=== PATIENT | male | born 1970 | race American Indian/Alaskan Native ===

== ENCOUNTER 2016-09-08 17:16 | Emergency (ER) | payer SELFPAY ==
[2016-09-08 17:47] LABS: Basophils % (Auto) 0.6 % (0.0-1.8); Eosinophils % (Auto) 0.1 % (0.0-4.3); Hematocrit 40.2 % (35.5-45.6); Mean Corpuscular HGB Conc 32 % (32-34); Mean Corpuscular Hemoglobin 27 pg (28-32); Mean Corpuscular Volume 84 fl (84-94); Platelet Count 219 K/mm3 (140-440); Red Blood Count 4.76 M/mm3 (3.65-5.03)
--- NOTE | 2016-09-08 17:55 | Emergency Department Report ---
ED Altered Mental Status HPI - General Chief Complaint: Altered Mental Status Stated Complaint: SEVERE AMS Time Seen by Provider: 09/08/16 17:37 Source: patient Mode of arrival: Ambulatory Limitations: Altered Mental Status - History of Present Illness Initial Comments: Patient presents to the emergency department for evaluation of altered mental status. Patient states he does not know how he got to the emergency department. He does not know his name. He states that he is in pain, but cannot state what hurts. He denies taking any medication or other drugs. There are no other complaints. MD Complaint: confusion -: unknown Severity: severe Consistency of Symptoms: constant Context: unknown Associated Symptoms: denies other symptoms - Related Data Home Medications Medication Instructions Recorded Confirmed Last Taken Unobtainable 09/08/16 09/08/16 Unknown Allergies Allergy/AdvReac Type Severity Reaction Status Date / Time Unable to Assess Allergy Unverified 09/08/16 17:23 ED Review of Systems ROS: Stated complaint: SEVERE AMS Other details as noted in HPI Comment: Unobtainable due to pts medical conditions ED Past Medical Hx - Past Medical History Additional medical history: Unknown - Surgical History Past Surgical History?: Yes Hx Appendectomy: Yes - Social History Smoking Status: Unknown if ever smoked Substance Use Type: Other (unknown) - Medications Home Medications: Home Medications Medication Instructions Recorded Confirmed Last Taken Type Unobtainable 09/08/16 09/08/16 Unknown History ED Physical Exam - General Limitations: Altered Mental Status General appearance: alert, in no apparent distress - Head Head exam: Present: atraumatic, normocephalic - Eye Eye exam: Present: normal appearance, PERRL, EOMI - ENT ENT exam: Present: normal exam, normal orophraynx, mucous membranes moist - Neck Neck exam: Present: normal inspection, full ROM. Absent: tenderness - Respiratory Respiratory exam: Present: normal lung sounds bilaterally. Absent: respiratory distress - Cardiovascular Cardiovascular Exam: Present: normal rhythm, tachycardia, normal heart sounds - GI/Abdominal GI/Abdominal exam: Present: soft, normal bowel sounds. Absent: distended, tenderness - Extremities Exam Extremities exam: Present: normal inspection, full ROM. Absent: tenderness - Back Exam Back exam: Present: normal inspection, full ROM. Absent: tenderness - Neurological Exam Neurological exam: Present: alert. Absent: oriented X3 (not oriented to person , place, or time), motor sensory deficit - Skin Skin exam: Present: warm, dry, intact ED Course Vital Signs 09/08/16 09/08/16 09/08/16 17:28 17:34 18:59 Temperature 97.7 F 98.3 F 98.3 F Pulse Rate 113 H 93 H 95 H Respiratory 16 16 16 Rate Blood Pressure 148/95 Blood Pressure 134/78 127/80 [Left] O2 Sat by Pulse 99 100 99 Oximetry - Lab Data Result diagrams: 09/08/16 17:27 09/08/16 17:27 Lab Results 09/08/16 09/08/16 09/08/16 Range/Units 17:20 17:27 17:27 WBC 13.0 H (4.5-11.0) K/mm3 RBC 4.76 (3.65-5.03) M/mm3 Hgb 13.0 (11.8-15.2) gm/dl Hct 40.2 (35.5-45.6) % MCV 84 (84-94) fl MCH 27 L (28-32) pg MCHC 32 (32-34) % RDW 15.0 (13.2-15.2) % Plt Count 219 (140-440) K/mm3 Lymph % (Auto) 7.7 L (13.4-35.0) % [place] % (Auto) 5.6 (0.0-7.3) % Eos % (Auto) 0.1 (0.0-4.3) % Baso % (Auto) 0.6 (0.0-1.8) % Lymph # 1.0 L (1.2-5.4) K/mm3 [place] # 0.7 (0.0-0.8) K/mm3 Eos # 0.0 (0.0-0.4) K/mm3 Baso # 0.1 (0.0-0.1) K/mm3 Seg Neutrophils % 86.0 H (40.0-70.0) % Seg Neutrophils # 11.2 H (1.8-7.7) K/mm3 Sodium 142 (137-145) mmol/L Potassium 4.7 (3.6-5.0) mmol/L Chloride 101.2 (98-107) mmol/L Carbon Dioxide 25 (22-30) mmol/L Anion Gap 21 mmol/L BUN 14 (9-20) mg/dL Creatinine 0.9 (0.8-1.5) mg/dL Estimated GFR > 60 ml/min BUN/Creatinine Ratio 15.55 % Glucose 101 H (75-100) mg/dL POC Glucose 99 (70-105) Lactic Acid (0.7-2.0) mmol/L Calcium 9.7 (8.4-10.2) mg/dL Magnesium 2.20 (1.7-2.3) mg/dL Total Bilirubin 0.40 (0.1-1.2) mg/dL AST 22 (5-40) units/L ALT 22 (7-56) units/L Alkaline Phosphatase 114 (35-129) units/L Ammonia (25-60) umol/L Total Creatine Kinase (55-170) units/L Total Protein 7.7 (6.3-8.2) g/dL Albumin 4.6 (3.9-5) g/dL Albumin/Globulin Ratio 1.5 % TSH (0.270-4.200) mlU/mL Salicylates (2.8-20.0) mg/dL Acetaminophen (10.0-30.0) ug/mL Plasma/Serum Alcohol (0-0.07) gm% 09/08/16 09/08/16 09/08/16 Range/Units 17:27 17:27 17:27 WBC (4.5-11.0) K/mm3 RBC (3.65-5.03) M/mm3 Hgb (11.8-15.2) gm/dl Hct (35.5-45.6) % MCV (84-94) fl MCH (28-32) pg MCHC (32-34) % RDW (13.2-15.2) % Plt Count (140-440) K/mm3 Lymph % (Auto) (13.4-35.0) % [place] % (Auto) (0.0-7.3) % Eos % (Auto) (0.0-4.3) % Baso % (Auto) (0.0-1.8) % Lymph # (1.2-5.4) K/mm3 [place] # (0.0-0.8) K/mm3 Eos # (0.0-0.4) K/mm3 Baso # (0.0-0.1) K/mm3 Seg Neutrophils % (40.0-70.0) % Seg Neutrophils # (1.8-7.7) K/mm3 Sodium (137-145) mmol/L Potassium (3.6-5.0) mmol/L Chloride (98-107) mmol/L Carbon Dioxide (22-30) mmol/L Anion Gap mmol/L BUN (9-20) mg/dL Creatinine (0.8-1.5) mg/dL Estimated GFR ml/min BUN/Creatinine Ratio % Glucose (75-100) mg/dL POC Glucose (70-105) Lactic Acid 1.40 (0.7-2.0) mmol/L Calcium (8.4-10.2) mg/dL Magnesium (1.7-2.3) mg/dL Total Bilirubin (0.1-1.2) mg/dL AST (5-40) units/L ALT (7-56) units/L Alkaline Phosphatase (35-129) units/L Ammonia (25-60) umol/L Total Creatine Kinase (55-170) units/L Total Protein (6.3-8.2) g/dL Albumin (3.9-5) g/dL Albumin/Globulin Ratio % TSH 0.532 (0.270-4.200) mlU/mL Salicylates < 0.3 L (2.8-20.0) mg/dL Acetaminophen (10.0-30.0) ug/mL Plasma/Serum Alcohol (0-0.07) gm% 09/08/16 09/08/16 09/08/16 Range/Units 17:27 17:27 17:45 WBC (4.5-11.0) K/mm3 RBC (3.65-5.03) M/mm3 Hgb (11.8-15.2) gm/dl Hct (35.5-45.6) % MCV (84-94) fl MCH (28-32) pg MCHC (32-34) % RDW (13.2-15.2) % Plt Count (140-440) K/mm3 Lymph % (Auto) (13.4-35.0) % [place] % (Auto) (0.0-7.3) % Eos % (Auto) (0.0-4.3) % Baso % (Auto) (0.0-1.8) % Lymph # (1.2-5.4) K/mm3 [place] # (0.0-0.8) K/mm3 Eos # (0.0-0.4) K/mm3 Baso # (0.0-0.1) K/mm3 Seg Neutrophils % (40.0-70.0) % Seg Neutrophils # (1.8-7.7) K/mm3 Sodium (137-145) mmol/L Potassium (3.6-5.0) mmol/L Chloride (98-107) mmol/L Carbon Dioxide (22-30) mmol/L Anion Gap mmol/L BUN (9-20) mg/dL Creatinine (0.8-1.5) mg/dL Estimated GFR ml/min BUN/Creatinine Ratio % Glucose (75-100) mg/dL POC Glucose (70-105) Lactic Acid (0.7-2.0) mmol/L Calcium (8.4-10.2) mg/dL Magnesium (1.7-2.3) mg/dL Total Bilirubin (0.1-1.2) mg/dL AST (5-40) units/L ALT (7-56) units/L Alkaline Phosphatase (35-129) units/L Ammonia (25-60) umol/L Total Creatine Kinase 385 H (55-170) units/L Total Protein (6.3-8.2) g/dL Albumin (3.9-5) g/dL Albumin/Globulin Ratio % TSH (0.270-4.200) mlU/mL Salicylates (2.8-20.0) mg/dL Acetaminophen < 15.0 (10.0-30.0) ug/mL Plasma/Serum Alcohol < 0.01 (0-0.07) gm% /16/17 Range/Units 18:13 WBC (4.5-11.0) K/mm3 RBC (3.65-5.03) M/mm3 Hgb (11.8-15.2) gm/dl Hct (35.5-45.6) % MCV (84-94) fl MCH (28-32) pg MCHC (32-34) % RDW (13.2-15.2) % Plt Count (140-440) K/mm3 Lymph % (Auto) (13.4-35.0) % [place] % (Auto) (0.0-7.3) % Eos % (Auto) (0.0-4.3) % Baso % (Auto) (0.0-1.8) % Lymph # (1.2-5.4) K/mm3 [place] # (0.0-0.8) K/mm3 Eos # (0.0-0.4) K/mm3 Baso # (0.0-0.1) K/mm3 Seg Neutrophils % (40.0-70.0) % Seg Neutrophils # (1.8-7.7) K/mm3 Sodium (137-145) mmol/L Potassium (3.6-5.0) mmol/L Chloride (98-107) mmol/L Carbon Dioxide (22-30) mmol/L Anion Gap mmol/L BUN (9-20) mg/dL Creatinine (0.8-1.5) mg/dL Estimated GFR ml/min BUN/Creatinine Ratio % Glucose (75-100) mg/dL POC Glucose (70-105) Lactic Acid (0.7-2.0) mmol/L Calcium (8.4-10.2) mg/dL Magnesium (1.7-2.3) mg/dL Total Bilirubin (0.1-1.2) mg/dL AST (5-40) units/L ALT (7-56) units/L Alkaline Phosphatase (35-129) units/L Ammonia 45.0 (25-60) umol/L Total Creatine Kinase (55-170) units/L Total Protein (6.3-8.2) g/dL Albumin (3.9-5) g/dL Albumin/Globulin Ratio % TSH (0.270-4.200) mlU/mL Salicylates (2.8-20.0) mg/dL Acetaminophen (10.0-30.0) ug/mL Plasma/Serum Alcohol (0-0.07) gm% - EKG Data -: EKG Interpreted by Il EKG shows normal: sinus rhythm, axis, intervals, QRS complexes, ST-T waves Rate: tachycardia When compared to previous EKG there are: previous EKG unavailable Interpretation: normal EKG - Medical Decision Making Additional history has been obtained from nursing staff who saw the patient come to the emergency department earlier today. Per report, the patient has a history of paranoid schizophrenia but left the hospital because he was concerned about security watching him. Lab and imaging results have been reviewed and are unremarkable. Urinalysis and urine drug screen are still pending. It is becoming more likely that the patient's presentation is psychiatric in nature. Form 1013 will be signed and placed on the patient's chart. Patient is awaiting mental health evaluation for inpatient placement. - Differential Diagnosis encephalopathy, drug intoxication, hyperthyroidism Critical care attestation.: If time is entered above; I have spent that time in minutes in the direct care of this critically ill patient, excluding procedure time. ED Disposition Clinical Impression: Paranoid schizophrenia Disposition: [id number]/TX-65 PSY HOSP/PSY UNIT Is pt being admited?: No Condition: Stable Time of Disposition: 19:44
[2016-09-08 18:03] LABS: Alanine Aminotransferase 22 units/L (7-56); Albumin 4.6 g/dL (3.9-5); Albumin/Globulin Ratio 1.5 %; Alkaline Phosphatase 114 units/L (35-129); Anion Gap 21 mmol/L; BUN/Creatinine Ratio 15.55; Blood Urea Nitrogen 14 mg/dL (9-20); Calcium 9.7 mg/dL (8.4-10.2); Carbon Dioxide 25 mmol/L (22-30); Chloride 101.2 mmol/L (98-107); Glucose 101 mg/dL (75-100); Potassium 4.7 mmol/L (3.6-5.0); Sodium 142 mmol/L (137-145); Total Protein 7.7 g/dL (6.3-8.2)
--- NOTE | 2016-09-08 18:29 | Cat Scan Report ---
FINAL REPORT PROCEDURE: CT head without contrast. TECHNIQUE: Computerized tomography of the head was performed without contrast material. HISTORY: New onset confusion. COMPARISON: No prior studies are available for comparison. FINDINGS: The ventricles are normal in size. The hein matter and white matter appear normal. There are no mass lesions. There is no intracranial hemorrhage. There are no signs of acute infarction. The calvarium appears intact. The mastoid air cells are clear. There is mild mucosal thickening in the left maxillary sinus. IMPRESSION: Normal study of the brain.
[2016-09-08 20:02] LABS: Bilirubin,Urine NEG (Negative); Blood,Urine NEG (Negative); Ketones,Urine TR mg/dL (Negative); Leukocyte Esterase,Urine NEG (Negative); Mucus,Urine 1+ /HPF; Nitrite,Urine NEG (Negative); Urobilinogen,Urine < 2.0 mg/dL (<2.0)
[2016-09-08 23:55] LABS: Urine Drugs of Abuse Note Disclamer
[2016-09-09] MEDS ORDERED: GEODON IM ONE (07:51)
--- NOTE | 2016-09-09 08:07 | Emergency Department Report ---
Blank Doc - Documentation Documentation: I have had an opportunity to review this case with the nurse and see the patient. The patient is completely nonverbal. He appears to be responding to internal stimuli. During the night he was placed in 4-point restraints but not given any antipsychotic medication. His workup is remarkable for no emergency medical condition identifiable on laboratory workup or CT examination. On examination now the patient appears to be neurologically intact his cardiovascular exam is normal his lungs are clear his abdomen is benign. Diagnostic impression Acute psychosis Plan Patient will be given 10 of Geodon now. I do think this will be of benefit. He requires psychiatric stabilization. I do not see any medical contraindications to psychiatric hospitalization. Mental health counselor will be informed.
[2016-09-09] MEDS ORDERED: ATIVAN IV ONE (08:33)
--- NOTE | 2016-09-10 11:25 | Consultation ---
History of Present Illness - Reason for Consult Consult date: 09/10/16 Reason for consult: AMS Medications and Allergies Allergies Allergy/AdvReac Type Severity Reaction Status Date / Time Unable to Assess Allergy Unverified 09/08/16 17:23 Home Medications Medication Instructions Recorded Confirmed Last Taken Type Unobtainable 09/08/16 09/08/16 Unknown History Mental Status Exam - Vital signs Last Vital Signs Temp 97.7 F 09/10/16 09:25 Pulse 85 09/10/16 09:25 Resp 16 09/10/16 09:26 BP 131/92 09/10/16 09:25 Pulse Ox 98 09/10/16 09:26 Results Result Diagrams: 09/08/16 17:27 09/08/16 17:27 All other labs normal. 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 For the first 2 days patient was mostly nonverbal and apparently confused per review of the medical records. Patient was given IM of Geodon when he was registered under the [facility] emergency medical due to no one knowing his name. Upon clinical examination yesterday, patient was more verbal than what was reported through the medical record previously. Per discussion with the nurse yesterday , the patient had become somewhat agitated and was placed in restraints. Furthermore, patient was malodorous and appeared to be inattentive to his ADLs. These events were consistent with his presentation yesterday in the day for. On examination today, patient is more verbal he's organized alert and oriented. Patient notes that his name is Eleuterio Butcher and that he is 46 years old. Furthermore, patient notes that she was intoxicated on alcohol and got picked up by the police because he was having disorganized behaviors and/or that he was confused. Patient states that he has a place residence and consistently follows up with his psychiatrist Dr. Caro who is at [address] [facility] in [facility] [place]. PSYCHIATRIC REVIEW OF SYSTEMS: Substance: Recent alcohol use Depression: denies Crystal: denies labile moods, no flight of ideas, not impulsive Psychosis: no AVH. No paranoia/grandiosity/erotomania Anxiety/ OCD/ PTSD: denies somatic symptoms, flashbacks, nightmares, avoidance, panic attacks Suicidality: denies SI Other Self-Injurious Behavior: none currently, no SIB noted recently Violent/ Aggressive Behavior: none noted CURRENT MEDICATIONS: ( Psychiatric and Non-psychiatric ) Clozaril 200 mg at bedtime ALLERGIES: Unknown PAST PSYCHIATRIC HISTORY: ( Prior Treatment, Precipitating Factors, Diagnosis, and Course of Treatment ) Inpatient: Patient did not report; however, it's likely that he set previous inpatient consultations Outpatient: Follows up with Dr. Caro at [address] [place] [address] Prior Suicide Attempts: denies Prior Self-Injurious Behaviors: denies PAST PSYCHIATRIC MEDICATION TRIALS: Patient did not report MEDICAL HISTORY: (Chronic and Acute Illnesses, Current Medical Treatment, Recent Hospitalizations) Patient did not report HISTORY OF TRAUMA/ABUSE: Patient denies on clinical examination DRUG / ALCOHOL ABUSE HISTORY: As above Detoxification / Withdrawal: none noted SOCIAL HISTORY: (Educational Level, Employment, Support System, Interpersonal Relationships) On disability, lives with a roommate. FAMILY HISTORY: Psychiatric/Substance Abuse MENTAL STATUS EXAM: General Appearance: casually dressed, no acute distress Sensorium/Consciousness: alert and responding to external stimuli Eye Contact: Fair Attitude / Behavior: cooperative Psychomotor & Musculoskeletal Activity: Bilateral tremors consistent with tardive dyskinesia. No perioral movements noted. No truncal movements noted. Gait is stable. Mood: fine Affect: constricted Speech / Language: normal Thought Processes: More organized compared to yesterday Thought Content: no SI, no HI Perception: no AVH Orientation: person, place, time and situation Judgment What would you do if you smelled smoke in a crowded movie theater?: improving Insight: improving Intelligence Vocabulary, general fund of knowledge, educational level : Below Average Capacity of ADLs: Independent STRENGTHS: PSYCHOSOCIAL AND ENVIRONMENTAL STRESSORS: ADMITTING DIAGNOSES Psychiatric: Schizophrenia Evidence for the following: Medical: n/a INITIAL PLAN OF CARE AND TREATMENT GOALS: Rescind 1013 Start Clozaril 200 mg po qhs (ANC reviewed and its WNL) Follow up with Dr. Caro at [address] [place] [address] in 7 days
--- NOTE | 2016-09-10 12:34 | Emergency Department Report ---
Blank Doc - Documentation Documentation: Patient has been reevaluated by psychiatry. Recommendations are to rescind the 1013 and discharge the patient home. Patient will be provided a prescription for Clozaril 200 mg by mouth at bedtime for 7 days per psychiatry request. Patient is to follow up with his outpatient psychiatrist in 7 days.
[2016-09-10 12:51] VITALS: BP 130/82
== END 2016-09-10 12:50 | disposition home or self-care (01) ==
LOC: EDBD 17:16 → EEVIPCON 17:16 → ED 17:16
DX: F20.0 Paranoid schizophrenia (principal)
CPT/HCPCS: 36415; 70450; 80053; 80307; 81001; 82140; 82550; 82962; 83735; 84443; 85025; 96372; 96374; 99285; G0480; J2060; J3486; 80320

== ENCOUNTER 2016-09-11 09:32 | Emergency (ER) | payer SELFPAY ==
[2016-09-11 09:54] VITALS: BP 144/89
--- NOTE | 2016-09-11 09:57 | Emergency Department Report ---
Chief Complaint: Medical Clearance Stated Complaint: DISORIENTATED Time Seen by Provider: 09/11/16 09:52 - HPI History of Present Illness: PT sent back from ED after being at hospital for shaking. PT is alert to person but states he lost his memory. PT denies pain. - ROS Review of Systems: - headache + tremor + decrease in memory - Exam Physical Exam: pt is alert, obese tremors noted to olvin upper ext pt appears to have an old contusion to L eye MSE screening note: Focused history and physical exam performed. Due to findings the following was ordered: labs ED Disposition for MSE Condition: Stable
[2016-09-11 10:19] LABS: Basophils % (Auto) 0.6 % (0.0-1.8); Eosinophils % (Auto) 0.4 % (0.0-4.3); Hematocrit 39.5 % (35.5-45.6); Hemoglobin 12.9 gm/dl (11.8-15.2); Mean Corpuscular HGB Conc 33 % (32-34); Mean Corpuscular Hemoglobin 27 pg (28-32); Mean Corpuscular Volume 83 fl (84-94); Platelet Count 206 K/mm3 (140-440); Red Blood Count 4.75 M/mm3 (3.65-5.03); Red Cell Distribution Width 15.2 % (13.2-15.2); White Blood Count 11.8 K/mm3 (4.5-11.0)
[2016-09-11 10:43] LABS: Alanine Aminotransferase 25 units/L (7-56); Albumin 4.6 g/dL (3.9-5); Albumin/Globulin Ratio 1.5 %; Alkaline Phosphatase 106 units/L (35-129); Anion Gap 20 mmol/L; Blood Urea Nitrogen 27 mg/dL (9-20); Calcium 9.5 mg/dL (8.4-10.2); Carbon Dioxide 26 mmol/L (22-30); Chloride 98.7 mmol/L (98-107); Glucose 88 mg/dL (75-100); Potassium 3.8 mmol/L (3.6-5.0); Sodium 141 mmol/L (137-145); Total Protein 7.7 g/dL (6.3-8.2)
--- NOTE | 2016-09-16 10:51 | ED Elopement Review ---
ED Pt Elopement review - Results review Lab results: Laboratory Tests 09/11/16 09/11/16 09/11/16 10:02 10:02 10:02 WBC 11.8 H RBC 4.75 Hgb 12.9 Hct 39.5 MCV 83 L MCH 27 L MCHC 33 RDW 15.2 Plt Count 206 Lymph % (Auto) 8.5 L [place] % (Auto) 6.8 Eos % (Auto) 0.4 Baso % (Auto) 0.6 Lymph # 1.0 L [place] # 0.8 Eos # 0.0 Baso # 0.1 Seg Neutrophils % 83.7 H Seg Neutrophils # 9.9 H Sodium 141 Potassium 3.8 Chloride 98.7 Carbon Dioxide 26 Anion Gap 20 BUN 27 H Creatinine 0.9 Estimated GFR > 60 BUN/Creatinine Ratio 30.00 Glucose 88 Calcium 9.5 Total Bilirubin 0.50 AST 28 ALT 25 Alkaline Phosphatase 106 Total Protein 7.7 Albumin 4.6 Albumin/Globulin Ratio 1.5 Salicylates < 0.3 L Acetaminophen Plasma/Serum Alcohol 09/11/16 09/11/16 10:02 10:02 WBC RBC Hgb Hct MCV MCH MCHC RDW Plt Count Lymph % (Auto) [place] % (Auto) Eos % (Auto) Baso % (Auto) Lymph # [place] # Eos # Baso # Seg Neutrophils % Seg Neutrophils # Sodium Potassium Chloride Carbon Dioxide Anion Gap BUN Creatinine Estimated GFR BUN/Creatinine Ratio Glucose Calcium Total Bilirubin AST ALT Alkaline Phosphatase Total Protein Albumin Albumin/Globulin Ratio Salicylates Acetaminophen < 15.0 Plasma/Serum Alcohol < 0.01 - Call Back decision Pt Call Back Decision: No action required
== END 2016-09-11 10:15 | disposition left against medical advice (07) ==
LOC: ED 09:32
DX: R41.0 Disorientation, unspecified (principal); Z53.21 Procedure and treatment not carried out due to patient leaving prior to being seen by health care provider
CPT/HCPCS: 36415; 80053; 85025; G0480; 80320

== ENCOUNTER 2016-09-12 02:59 | Emergency (ER) | payer MEDICAID ==
[2016-09-12 03:29] LABS: Basophils % (Auto) 0.4 % (0.0-1.8); Eosinophils % (Auto) 0.4 % (0.0-4.3); Hematocrit 38.1 % (35.5-45.6); Hemoglobin 12.4 gm/dl (11.8-15.2); Mean Corpuscular HGB Conc 32 % (32-34); Mean Corpuscular Hemoglobin 27 pg (28-32); Mean Corpuscular Volume 84 fl (84-94); Platelet Count 220 K/mm3 (140-440); Red Blood Count 4.56 M/mm3 (3.65-5.03); Red Cell Distribution Width 15.4 % (13.2-15.2); White Blood Count 13.9 K/mm3 (4.5-11.0)
[2016-09-12 03:35] LABS: Anion Gap 20 mmol/L; Blood Urea Nitrogen 27 mg/dL (9-20); Calcium 9.1 mg/dL (8.4-10.2); Carbon Dioxide 26 mmol/L (22-30); Chloride 94.8 mmol/L (98-107); Glucose 87 mg/dL (75-100); Potassium 3.5 mmol/L (3.6-5.0); Sodium 137 mmol/L (137-145)
--- NOTE | 2016-09-12 11:45 | Emergency Department Report ---
ED General Adult HPI - General Chief complaint: Psych Stated complaint: MH EVAL Time Seen by Provider: 09/12/16 11:04 Source: patient, RN notes reviewed, old records reviewed Mode of arrival: Ambulatory Limitations: No Limitations - History of Present Illness Initial comments: This is a 46-year-old male. He is previously unknown to me. The patient has a past history of schizophrenia and is undomiciled. Patient is brought to the hospital by EMS. As per verbal report from the nurse, the patient was smoking cigarettes outside of a local store, and 911 was contacted. The patient was recently admitted to the emergency room for psychiatric evaluation. The patient is not homicidal or suicidal. He has no pain at this time. He does have intermittent tremors of the bilateral upper extremities which appear to be chronic. The patient does not have any interest in speaking to a continuous pillowcase cutter about some help with his homelessness. He denies audio and visual hallucinations, and denies abdominal pain, and he requests to leave. He denies irritative and obstructive urinary symptoms. Patient recently admitted to the ER, had extensive workup, including laboratory studies, and a negative noncontrast CT scan of the brain. Severity scale (0 -10): 0 Improves with: none Worsens with: none Associated Symptoms: denies other symptoms - Related Data Previous Rx's Medication Instructions Recorded Last Taken Type cloZAPine 200 mg PO QHS #7 tablet 09/10/16 Unknown Rx Allergies Allergy/AdvReac Type Severity Reaction Status Date / Time No Known Allergies Allergy Verified 09/11/16 09:57 ED Review of Systems ROS: Stated complaint: MH EVAL Other details as noted in HPI Constitutional: see HPI Eyes: as per HPI ENT: as per HPI Respiratory: see HPI Cardiovascular: as per HPI. denies: chest pain Gastrointestinal: denies: abdominal pain Genitourinary: as per HPI Musculoskeletal: as per HPI Skin: as per HPI Neurological: as per HPI Psychiatric: denies: homicidal thoughts, suicidal thoughts ED Past Medical Hx - Past Medical History Previous Medical History?: Yes Hx Psychiatric Treatment: Yes (Schizophrenia) Additional medical history: Unknown - Surgical History Past Surgical History?: Yes Hx Appendectomy: Yes Additional Surgical History: pt will not respond to questions - Social History Smoking Status: Current Every Day Smoker Substance Use Type: Alcohol - Medications Home Medications: Home Medications Medication Instructions Recorded Confirmed Last Taken Type cloZAPine 200 mg PO QHS #7 tablet 09/10/16 Unknown Rx ED Physical Exam - General Limitations: No Limitations General appearance: alert, in no apparent distress - Head Head exam: Present: atraumatic, normocephalic - Eye Eye exam: Present: normal appearance, EOMI. Absent: nystagmus - ENT ENT exam: Present: normal exam, normal orophraynx, mucous membranes moist, normal external ear exam - Neck Neck exam: Present: normal inspection, full ROM. Absent: tenderness, meningismus - Respiratory Respiratory exam: Present: normal lung sounds bilaterally. Absent: respiratory distress, wheezes, rales, rhonchi, stridor, chest wall tenderness, accessory muscle use, decreased breath sounds, prolonged expiratory - Cardiovascular Cardiovascular Exam: Present: regular rate, normal rhythm, normal heart sounds. Absent: bradycardia, tachycardia, irregular rhythm, systolic murmur, diastolic murmur, rubs, gallop - GI/Abdominal GI/Abdominal exam: Present: soft, normal bowel sounds. Absent: distended, tenderness, guarding, rebound, rigid, pulsatile mass - Rectal Rectal exam: Present: deferred - Extremities Exam Extremities exam: Present: normal inspection, full ROM, normal capillary refill. Absent: tenderness, pedal edema, joint swelling, calf tenderness - Back Exam Back exam: Present: normal inspection, full ROM. Absent: tenderness, CVA tenderness (R), CVA tenderness (L), muscle spasm, paraspinal tenderness, vertebral tenderness - Neurological Exam Neurological exam: Present: alert, oriented X3, normal gait, other (Extraocular movements intact. Tongue midline. No facial droop. Facial sensation intact to light touch in the V1, V2, V3 distribution bilaterally. 5 and 5 strength in 4 extremities.. Sensation is intact to light touch in 4 extremities.). Absent : motor sensory deficit - Psychiatric Psychiatric exam: Absent: homicidal ideation, suicidal ideation - Skin Skin exam: Present: warm, dry, intact, normal color. Absent: rash ED Course Vital Signs 09/12/16 09/12/16 09/12/16 03:06 09:13 12:29 Temperature 98.1 F 97.9 F 97.9 F Pulse Rate 111 H 92 H 87 Respiratory 20 18 18 Rate Blood Pressure 114/83 120/87 120/86 [Right] O2 Sat by Pulse 97 99 99 Oximetry - Reevaluation(s) Reevaluation #1: 09/12/16 11:43 Differential diagnosis: Chronic homelessness, schizophrenia, mood disorder Assessment and plan: 46-year-old male with no complaint. He is somewhat disorganized and not homicidal or suicidal. He reports that he is smoking cigarettes. He denies toxic ingestions, is not experiencing hallucinations. He was just at the ER, and had an extensive workup. He has no medical complaints at this time, he was recently cleared by psychiatry. I don't think the patient requires any further evaluation this time. He will be discharged. ED Medical Decision Making - Lab Data Result diagrams: 09/12/16 03:05 09/12/16 03:05 Vital Signs 09/12/16 09/12/16 03:06 09:13 Temperature 98.1 F 97.9 F Pulse Rate 111 H 92 H Respiratory 20 18 Rate Blood Pressure 114/83 120/87 [Right] O2 Sat by Pulse 97 99 Oximetry Lab Results 09/12/16 09/12/16 09/12/16 Range/Units 03:05 03:05 03:05 WBC 13.9 H (4.5-11.0) K/mm3 RBC 4.56 (3.65-5.03) M/mm3 Hgb 12.4 (11.8-15.2) gm/dl Hct 38.1 (35.5-45.6) % MCV 84 (84-94) fl MCH 27 L (28-32) pg MCHC 32 (32-34) % RDW 15.4 H (13.2-15.2) % Plt Count 220 (140-440) K/mm3 Lymph % (Auto) 10.2 L (13.4-35.0) % [place] % (Auto) 8.3 H (0.0-7.3) % Eos % (Auto) 0.4 (0.0-4.3) % Baso % (Auto) 0.4 (0.0-1.8) % Lymph # 1.4 (1.2-5.4) K/mm3 [place] # 1.2 H (0.0-0.8) K/mm3 Eos # 0.1 (0.0-0.4) K/mm3 Baso # 0.1 (0.0-0.1) K/mm3 Seg Neutrophils % 80.7 H (40.0-70.0) % Seg Neutrophils # 11.2 H (1.8-7.7) K/mm3 Sodium 137 (137-145) mmol/L Potassium 3.5 L (3.6-5.0) mmol/L Chloride 94.8 L (98-107) mmol/L Carbon Dioxide 26 (22-30) mmol/L Anion Gap 20 mmol/L BUN 27 H (9-20) mg/dL Creatinine 1.0 (0.8-1.5) mg/dL Estimated GFR > 60 ml/min BUN/Creatinine Ratio 27.00 % Glucose 87 (75-100) mg/dL Calcium 9.1 (8.4-10.2) mg/dL Plasma/Serum Alcohol < 0.01 (0-0.07) gm% Critical care attestation.: If time is entered above; I have spent that time in minutes in the direct care of this critically ill patient, excluding procedure time. ED Disposition Clinical Impression: History of tobacco use Disposition: TO HOME OR SELFCARE Is pt being admited?: No Does the pt Need Aspirin: No Condition: Stable Instructions: Mood Disorders (ED) Additional Instructions: Continue current outpatient medications. Follow up with her psychiatrist, Dr. Caro at [address] [place] [address] in [facility]. Return to the ER right away with fevers or chills, chest pain or shortness of breath, nausea or vomiting, confusion, inability to tolerate liquid feeds, new, worsening or different symptoms. Referrals: PRIMARY CARE, [Primary Care Provider] - 3-5 Days OLESYA GIRON MD [Staff Physician] - 3-5 Days [facility] [Outside] - 3-5 Days
[2016-09-12 12:30] VITALS: BP 120/86
== END 2016-09-12 12:30 | disposition home or self-care (01) ==
LOC: EEVIPCON 02:59 → ED 02:59
DX: R25.1 Tremor, unspecified (principal); F20.9 Schizophrenia, unspecified; F17.200 Nicotine dependence, unspecified, uncomplicated
CPT/HCPCS: 36415; 80048; 85025; 99283; G0480; 80320

== ENCOUNTER 2016-09-12 16:32 | Emergency (ER) | payer SELFPAY ==
--- NOTE | 2016-09-12 18:00 | Emergency Department Report ---
HPI - General Chief Complaint: Psych Time Seen by Provider: 09/12/16 17:42 - HPI HPI: Room 13 The patient is a 46-year-old male with a chief complaint of disorganized thought. The patient is a history of schizophrenia. Patient was brought in by police after being observed "mumbling confused and unable to care for himself." The patient acknowledges he has schizophrenia but on the interview all the questions are responded to a nonsensical fashion. The patient mumbles to himself the front of his shirt appears as though a liquid has been spilled all over it recently Location: Mental state Duration: Unknown Quality: Disorganized Severity: Moderate Modifying factors: [see above] Context: [see above] Mode of transportation: [not driving] ED Past Medical Hx - Past Medical History Previous Medical History?: Yes Hx Psychiatric Treatment: Yes (Schizophrenia) Additional medical history: Unknown - Surgical History Past Surgical History?: Yes Hx Appendectomy: Yes Additional Surgical History: pt will not respond to questions - Family History Family history: no significant - Social History Smoking Status: Current Every Day Smoker - Medications Home Medications: Home Medications Medication Instructions Recorded Confirmed Last Taken Type cloZAPine 200 mg PO QHS #7 tablet 09/10/16 Unknown Rx ED Review of Systems ROS: Stated complaint: 1013 Other details as noted in HPI Comment: Unobtainable due to pts medical conditions Physical Exam - Physical Exam Vital Signs: Vital Signs 09/12/16 16:49 Temperature 98.2 F Pulse Rate 82 Respiratory 22 Rate Blood Pressure 122/82 O2 Sat by Pulse 99 Oximetry Physical Exam: GENERAL: The patient is well-developed well-nourished male sitting on chair mumbling to himself not appearing to be in acute distress. The front of the patient's shirt is wet as if a drink was spilled on it HEENT: Normocephalic. Atraumatic. Patient has moist mucous membranes. NECK: Supple. No meningitic signs are noted. Trachea midline CHEST/LUNGS: Clear to auscultation. There is no respiratory distress noted. HEART/CARDIOVASCULAR: Regular. There is no tachycardia. There is no gallop rub or murmur. ABDOMEN: Abdomen is soft, nontender. Patient has normal bowel sounds. There is no abdominal distention. SKIN: There is no rash. There is no edema. There is no diaphoresis. NEURO: The patient is awake and alert but appears disorganized. The patient is cooperative. Patient moves all extremities well. The patient has normal speech MUSCULOSKELETAL: There is no evidence of acute injury. ED Course Vital Signs 09/12/16 16:49 Temperature 98.2 F Pulse Rate 82 Respiratory 22 Rate Blood Pressure 122/82 O2 Sat by Pulse 99 Oximetry ED Medical Decision Making - Lab Data Result diagrams: 09/12/16 18:10 09/12/16 18:10 Laboratory Tests 09/12/16 09/12/16 09/12/16 18:10 18:10 18:10 WBC 13.8 H RBC 4.30 Hgb 11.9 Hct 35.9 MCV 83 L MCH 28 MCHC 33 RDW 15.3 H Plt Count 216 Lymph % (Auto) 11.0 L [place] % (Auto) 6.5 Eos % (Auto) 0.5 Baso % (Auto) 0.4 Lymph # 1.5 [place] # 0.9 H Eos # 0.1 Baso # 0.1 Seg Neutrophils % 81.6 H Seg Neutrophils # 11.2 H Sodium 136 L Potassium 3.6 Chloride 95.2 L Carbon Dioxide 24 Anion Gap 20 BUN 23 H Creatinine 0.8 Estimated GFR > 60 BUN/Creatinine Ratio 28.75 Glucose 102 H Calcium 9.2 Plasma/Serum Alcohol < 0.01 - Differential Diagnosis schizophrenia Critical care attestation.: If time is entered above; I have spent that time in minutes in the direct care of this critically ill patient, excluding procedure time. ED Disposition Clinical Impression: Paranoid schizophrenia Disposition: DC/TX-65 PSY HOSP/PSY UNIT Is pt being admited?: No Does the pt Need Aspirin: No Condition: Fair Referrals: PRIMARY CARE [Primary Care Provider] - 3-5 Days Time of Disposition: 21:58 (awaiting acceptance)
[2016-09-12 18:31] LABS: Basophils % (Auto) 0.4 % (0.0-1.8); Eosinophils % (Auto) 0.5 % (0.0-4.3); Hematocrit 35.9 % (35.5-45.6); Hemoglobin 11.9 gm/dl (11.8-15.2); Mean Corpuscular HGB Conc 33 % (32-34); Mean Corpuscular Hemoglobin 28 pg (28-32); Mean Corpuscular Volume 83 fl (84-94); Platelet Count 216 K/mm3 (140-440); Red Cell Distribution Width 15.3 % (13.2-15.2); White Blood Count 13.8 K/mm3 (4.5-11.0)
[2016-09-12 19:00] LABS: Anion Gap 20 mmol/L; BUN/Creatinine Ratio 28.75; Blood Urea Nitrogen 23 mg/dL (9-20); Calcium 9.2 mg/dL (8.4-10.2); Carbon Dioxide 24 mmol/L (22-30); Chloride 95.2 mmol/L (98-107); Glucose 102 mg/dL (75-100); Potassium 3.6 mmol/L (3.6-5.0); Sodium 136 mmol/L (137-145)
[2016-09-12] MEDS: ATIVAN IM PRN (20:57)
[2016-09-12] MEDS: BENADRYL IM PRN (20:57)
[2016-09-12] MEDS: HALDOL IM PRN (20:57)
[2016-09-13 08:03] LABS: Urine Drugs of Abuse Note Disclamer
[2016-09-13 08:33] LABS: Bacteria,Urine 1+ /HPF (Negative); Bilirubin,Urine NEG (Negative); Blood,Urine SM (Negative); Ketones,Urine NEG (Negative); Leukocyte Esterase,Urine LG (Negative); Mucus,Urine FEW /HPF; Nitrite,Urine NEG (Negative)
[2016-09-13] MEDS ORDERED: HALDOL IM ONE (14:57)
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
[2016-09-13] MEDS: BENADRYL IM PRN (15:15)
[2016-09-14] MEDS: COGENTIN PO SCH ×3 (00:45→22:59)
[2016-09-14] MEDS: HALDOL PO SCH ×3 (00:45→22:59)
[2016-09-14] MEDS: ATIVAN IM PRN (08:39)
--- NOTE | 2016-09-14 12:57 | Progress Note ---
Subjective - Reason for Consult Reason for consult: disorganized Mental Status Exam - Vital signs Last Vital Signs Temp 99.1 F 09/14/16 10:57 Pulse 76 09/14/16 10:57 Resp 18 09/14/16 12:51 BP 132/87 09/14/16 10:57 Pulse Ox 99 09/14/16 10:57 Assessment and Plan Patient remains fairly disorganized, his baseline is really unknown. On examination, patient continues to request discharge. Patient notes that he'll be able to return back to his roommate. Patient notes that he lives on [address] in [facility]. His sister can be contacted at [phone]. At the current time, patient is not able to take care of himself if he were to be discharge to the streets. Consequently, his worker consult should be placed to help find appropriate placement or to ensure that his residence noted above is a place he can return to. MENTAL STATUS EXAM: General Appearance: casually dressed, no acute distress Sensorium/Consciousness: alert and responding to external stimuli Eye Contact: Fair Attitude / Behavior: cooperative Psychomotor & Musculoskeletal Activity: Bilateral tremors consistent with tardive dyskinesia. Gait is steady. Mood: labile Affect: labile Speech / Language: normal Thought Processes: circumstantial Thought Content: no SI, no HI Perception: no AVH, paranoid Orientation: person, place, time and situation Judgment poor Insight: poor Intelligence Below Average Capacity of ADLs: Independent PSYCHOSOCIAL AND ENVIRONMENTAL STRESSORS: homeless ADMITTING DIAGNOSES Psychiatric: Schizophrenia Recommendation: Bridge Toll Collector consult to contact sister at the above number Continue current dose of haloperidol Continue Cogentin Consider transitioning him to long-acting injectable prior to discharge
[2016-09-15] MEDS: ATIVAN IM PRN (01:19)
[2016-09-15] MEDS: BENADRYL IM PRN (05:41)
[2016-09-15] MEDS: HALDOL IM PRN (05:42)
[2016-09-15] MEDS: HALDOL PO SCH ×2 (10:46→22:20)
[2016-09-15] MEDS: COGENTIN PO SCH ×2 (10:46→22:21)
--- NOTE | 2016-09-15 15:07 | Progress Note ---
Subjective - Reason for Consult Consult date: 09/15/16 Reason for consult: follow up - Chief Complaint Chief complaint: "I want a bible" 46 year old male seen for psychiatric follow up in the ER. He is intermittently agitated and his affect is labile. Staff report he requires frequent redirection. He wears his gown open in the front despite reminders on privacy. He is taking haldol scheduled. Mental Status Exam - Vital signs Last Vital Signs Temp 98.2 F 09/14/16 20:15 Pulse 83 09/14/16 20:15 Resp 20 09/15/16 06:41 BP 146/76 09/14/16 20:15 Pulse Ox 98 09/15/16 06:41 Assessment and Plan PAST PSYCHIATRIC HISTORY: ( Prior Treatment, Precipitating Factors, Diagnosis, and Course of Treatment ) Sees Dr. Caro outpatient-unknown last appointment PAST PSYCHIATRIC MEDICATION TRIALS: Patient did not report MEDICAL HISTORY: (Chronic and Acute Illnesses, Current Medical Treatment, Recent Hospitalizations) Patient did not report HISTORY OF TRAUMA/ABUSE: Patient denies on clinical examination DRUG / ALCOHOL ABUSE HISTORY: As above Detoxification / Withdrawal: none noted SOCIAL HISTORY: (Educational Level, Employment, Support System, Interpersonal Relationships) On disability, was living with a roommate. FAMILY HISTORY: Psychiatric/Substance Abuse MENTAL STATUS EXAM: General Appearance: casually dressed, no acute distress Sensorium/Consciousness: alert and responding to external stimuli Eye Contact: Fair Attitude / Behavior: cooperative Psychomotor & Musculoskeletal Activity: Bilateral tremors consistent with tardive dyskinesia. Gait is steady. Mood: labile Affect: labile Speech / Language: normal Thought Processes: circumstantial Thought Content: no SI, no HI Perception: no AVH, paranoid Orientation: person, place, time and situation Judgment poor Insight: poor Intelligence Below Average Capacity of ADLs: Independent ADMITTING DIAGNOSES Psychiatric: Schizophrenia Recommendation: 1013 and transfer to inpatient psychiatric hospital for stabilization Continue haldol 5mg bid for psychosis. plan for transition to haldol decanoate start cogentin 0.5mg bid for eps prevention
[2016-09-16] MEDS ORDERED: HALDOL DECANOATE IM ONE (09:51)
--- NOTE | 2016-09-16 09:57 | Progress Note ---
Subjective - Reason for Consult Reason for consult: management/assessment of disorganized behaviors Mental Status Exam - Vital signs Last Vital Signs Temp 98.8 F 09/16/16 07:39 Pulse 84 09/16/16 07:39 Resp 20 09/16/16 07:39 BP 126/87 09/16/16 07:39 Pulse Ox 100 09/16/16 07:39 Assessment and Plan Patient remains fairly disorganized, his baseline is really unknown and this may be his baseline level of functioning. On examination, patient continues to request discharge. Patient has previous noted that he'll be able to return back to his roommate. Patient notes that he lives on [address] in [facility]. His sister can be contacted at [phone]. At the current time, patient is not able to take care of himself if he were to be discharge to the streets. Consequently, a case hardener consult has now be placed to help find appropriate placement or to ensure that his residence noted above is a place he can return to. MENTAL STATUS EXAM: General Appearance: casually dressed, no acute distress Sensorium/Consciousness: alert and responding to external stimuli Eye Contact: Fair Attitude / Behavior: cooperative Psychomotor & Musculoskeletal Activity: Bilateral tremors consistent with tardive dyskinesia. Gait is steady. Mood: labile Affect: labile Speech / Language: normal Thought Processes: circumstantial Thought Content: no SI, no HI Perception: no AVH, paranoid Orientation: person, place, time and situation Judgment poor Insight: poor Intelligence Below Average Capacity of ADLs: Independent PSYCHOSOCIAL AND ENVIRONMENTAL STRESSORS: homeless ADMITTING DIAGNOSES Psychiatric: Schizophrenia Recommendation: Production Team Manager consult to contact sister at the above number, verify home address and find alternative placement if above address is not one he can discharge to. Administer Haloperidol Deconate 50 mg IM one time Patient can follow up with Dr. Caro for monthly deconate shots Continue Gee
[2016-09-16] MEDS: COGENTIN PO SCH ×2 (14:28→22:08)
[2016-09-16] MEDS: HALDOL IM PRN (22:10)
[2016-09-16] MEDS: ATIVAN IM PRN (22:11)
[2016-09-16] MEDS: BENADRYL IM PRN (22:12)
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
[2016-09-17] MEDS: COGENTIN PO SCH ×2 (11:28→22:30)
--- NOTE | 2016-09-18 09:40 | Progress Note ---
Subjective - Reason for Consult Consult date: 09/18/16 Reason for consult: Psychiatry Follow-up - Chief Complaint Chief complaint: "I feel good today" 46 year old male seen for psychiatric follow up in the ER. Today patient is calm and cooperative during our assessment. He stated that he was glad to be out of the seclusion room. Per the staff, patient defecated in the sink of his assigned room. Patient stated that he asked to use to restroom, it was a delay and he could not "hold it." He agreed that his action was not appropriated. He denies SI/HI's, AVH's, and depression symptoms. Mental Status Exam - Vital signs Last Vital Signs Temp 98.3 F 09/17/16 19:56 Pulse 81 09/17/16 19:56 Resp 18 09/17/16 19:56 BP 142/82 09/17/16 19:56 Pulse Ox 100 09/17/16 19:56 - Exam Narrative exam: MSE: Appearance: calm, cooperative Behavior: good eye contact Speech: regular rate and tone Mood: "I feel okay" Affect: congruent to mood Thought Process: circumstantial Thought Content: denies SI/HI's and AVH's Motor Activity: ambulatory, tremors (TD possibly) Cognition: A/Ox 3 Insight: limited Judgment: limited Assessment and Plan Impression: Schizophrenia. Today patient is calm and cooperative during our assessment. He stated that he was glad to be out of the seclusion room. Patient impulsive (defecated in sink). He denies SI/HI's and AVH's. Recommendation/Plan: Continue Cogentin 0.5 mg PO BID for EPS. Patient will need placement by social services counselor, if he cannot return to his current residence. Project Development Coordinator involvement, possible placement is needed for patient.
[2016-09-18] MEDS: COGENTIN PO SCH ×2 (10:22→21:56)
--- NOTE | 2016-09-18 10:31 | Event Note ---
Date: 09/18/16 Called to patient's bedside for psychiatric hold, patient is trembling, but is alert and oriented. Pt has not been given his haldol, ativan, and cogentin that has been ordered. Nurse instructed to give medications now. Pt also noted to have a UTI with WBC, ordered Bactrim DS PO BID for patient.
[2016-09-18] MEDS: ATIVAN IM PRN (10:53)
[2016-09-18] MEDS: BACTRIM DS PO SCH ×2 (10:53→21:56)
[2016-09-18] MEDS: BENADRYL IM PRN (10:54)
[2016-09-18] MEDS: HALDOL IM PRN (13:58)
[2016-09-18] MEDS ORDERED: HABITROL TD ONE (14:54)
--- NOTE | 2016-09-18 15:46 | Event Note ---
Date: 09/18/16 Patient is currently on a 1013 and will be evaluated daily to determine proper dispo.
--- NOTE | 2016-09-19 09:10 | Progress Note ---
Subjective - Reason for Consult Consult date: 09/19/16 Reason for consult: Psychiatry Follow-up - Chief Complaint Chief complaint: "Will I be leaving today" 46 year old male seen for psychiatric follow up in the ER. Today patient is calm , cooperative, but disorganized during our assessment. He stated that he would like to leave today. When I asked the patient what type of medication he takes for his mental illness, he replied, "I don't do drugs." Per his assigned RN and notes from overnight, no behavioral disturbances noted. He denies SI/HI's and AVH's. Mental Status Exam - Vital signs Last Vital Signs Temp 98.6 F 09/18/16 20:10 Pulse 80 09/18/16 20:10 Resp 20 09/18/16 20:10 BP 132/78 09/18/16 20:10 Pulse Ox 99 09/18/16 20:10 - Exam Narrative exam: MSE: Appearance: calm, cooperative Behavior: good eye contact Speech: regular rate and tone Mood: "I feel okay" Affect: congruent to mood Thought Process: circumstantial Thought Content: denies SI/HI's and AVH's Motor Activity: ambulatory, tremors (Bilateral tremors upper extremities consistent with TD. Gait is steady) Cognition: A/Ox 3 Insight: fair Judgment: limited Assessment and Plan Impression: Schizophrenia. Today patient is calm, cooperative, but disorganized during our assessment.. He denies SI/HI's and AVH's. Recommendation/Plan: Continue 1013 with placement to inpatient psy services. Start Geodon 40 mg PO BID for schizophrenia and continue Cogentin 0.5 mg PO BID for EPS.
[2016-09-19] MEDS: BACTRIM DS PO SCH ×2 (11:43→22:14)
[2016-09-19] MEDS: COGENTIN PO SCH ×2 (11:43→22:14)
[2016-09-19] MEDS: GEODON PO SCH ×2 (14:53→22:14)
[2016-09-19] MEDS: ATIVAN IM PRN (22:30)
[2016-09-19] MEDS: BENADRYL IM PRN (22:31)
[2016-09-20 07:57] VITALS: BP 139/81
[2016-09-20] MEDS: BACTRIM DS PO SCH (11:52)
[2016-09-20] MEDS: COGENTIN PO SCH (11:52)
[2016-09-20] MEDS: GEODON PO SCH (11:52)
--- NOTE | 2016-09-20 18:29 | Progress Note ---
Subjective - Reason for Consult Consult date: 09/20/16 Reason for consult: follow up - Chief Complaint Chief complaint: "I'm ok" 46 year old male seen for psychiatric follow up in the ER. Today patient is calm , cooperative, but disorganized during our assessment. No behavioral disturbances reported overnight. He is taking medications and denies adverse effects to them. He denies SI/HI's and AVH's. Mental Status Exam - Vital signs Last Vital Signs Temp 98.6 F 09/20/16 07:52 Pulse 81 09/20/16 07:52 Resp 20 09/20/16 07:52 BP 139/81 09/20/16 07:52 Pulse Ox 100 09/20/16 07:52 Assessment and Plan MSE: Appearance: calm, cooperative Behavior: good eye contact Speech: regular rate and tone Mood: "I'm ok" Affect: constricted Thought Process: circumstantial Thought Content: denies SI/HI's and AVH's Motor Activity: ambulatory, tremors (Bilateral tremors upper extremities consistent with TD. Gait is steady) Cognition: A/Ox 3 Insight: fair Judgment: limited Assessment and Plan Impression: Schizophrenia. Today patient is calm, cooperative, but disorganized during our assessment.. He denies SI/HI's and AVH's. Recommendation/Plan: Continue 1013 with placement to inpatient psy services. Continue Geodon 40 mg PO BID for schizophrenia and continue Cogentin 0.5 mg PO BID for EPS.
== END 2016-09-20 16:30 ==
LOC: EEVIPCON 16:32 → ED 16:32
DX: F20.0 Paranoid schizophrenia (principal); F17.200 Nicotine dependence, unspecified, uncomplicated
CPT/HCPCS: 36415; 80048; 80178; 80307; 81001; 85025; 96372; 99285; G0480; J1200; J1630; J1631; J2060; 80320